=== PATIENT | female | born 1980 | race Caucasian/White ===

== ENCOUNTER → 2019-06-08 11:37 | Outpatient (CLI) | payer OTHER, SELFPAY ==
[2019-06-08 14:26] LABS: hCG Titer Quant., Serum 5691 mIU/mL (1-3)
[2019-06-10 13:36] LABS: hCG Titer Quant., Serum 4883 mIU/mL (1-3)
== END ==
PROVIDERS: Family Provider Family Medicine; PCP Family Medicine; Referring Provider Nurse Practitioner Women's Health; Visit Provider Nurse Practitioner Women's Health
DX: O36.80X0 Pregnancy with inconclusive fetal viability, not applicable or unspecified (principal); Z3A.00 Weeks of gestation of pregnancy not specified
CPT/HCPCS: 36415; 84702

== ENCOUNTER → 2019-06-12 08:36 | Outpatient (CLI) | payer OTHER, SELFPAY ==
[2019-06-12 10:27] LABS: hCG Titer Quant., Serum 4555 mIU/mL (1-3)
--- NOTE | 2019-06-12 16:37 | US_ITS ---
STUDY: FIRST TRIMESTER OBSTETRICAL ULTRASOUND REASON FOR EXAM: Female, 39 years old HCGS 4555 POSSIBLE ECTOPIC SPOTTING OVER THE WEEKEND LMP: TECHNIQUE: Transvaginal TECHNICAL QUALITY: Adequate. PRIOR ULTRASOUND: None. FINDINGS: No evidence for intrauterine gestation. The uterus measures 6.9 x 4.5 x 3.4 cm. There is no demonstrated uterine fibroid. The cervix is closed. The right ovary measures 3.4 x 2.2 x 1.3 cm. There is no right ovarian cyst. There is no visualized right adnexal mass or complex lesion. The left ovary measures 2.9 x 2.3 x 1.4 cm. There is no left ovarian cyst. Small complex adnexal lesion adjacent to left ovary measuring 3.9 x 3.4 x 1.9 cm.. Ectopic not entirely excluded There is no fluid in the cul de sac. US/Transvaginal w/Preg US IMPRESSION: No evidence for intrauterine gestation. Complex left adnexal nodule which may be consistent with ectopic however would recommend clinical correlation and follow-up. Referring physician was informed by fastener technologist after the exam according to technology notes Electronically Signed: Johnson Bartlett MD at 18:37 EST , Service support ,
[2019-06-12 16:53] LABS: Absolute Lymphocyte Count 1.79 X10^3/uL (0.83-4.51); Absolute Neutrophil Count 4.3 X10^3/uL (2.0-7.7); Basophil# 0.02 X10^3/uL; Basophil% 0.3 % (0-1); Eosinophil# 0.29 X10^3/uL; Eosinophils% 4.2 % (0-5); Hematocrit 34.5 % (37-47); Hemoglobin 10.7 g/dL (12.0-15.0); Lymphocyte # 1.79 X10^3/ul (4.0); Lymphocyte % 26.2 % (19-41); Mean Corpuscular Hgb 28.2 pg (27.0-32.0); Mean Corpuscular Volume 90.8 fL (81-99); Monocyte# 0.47 X10^3/uL; Monocyte% 6.9 % (0-10); NRBC Flagged by Analyzer 0 % (0-5); Neutrophil # 4.25 X10^3/uL (2.7-7.7); Neutrophil % 62.1 % (47-70); Platelet Count 321 K/mm3 (150-450); RBC Distribution Width CV 12.8 % (11.6-14.6); RBC Distribution Width SD 42.3 fl (35.1-43.9); White Blood Count 6.8 K/mm3 (4.4-11.0)
[2019-06-12 17:36] LABS: ALB/GLOB Ratio 0.7 RATIO (0.9-2.4); AST(SGOT) 17 U/L (15-37); Alanine Aminotransfer ALT/SGPT 26 U/L (13-56); Albumin, Serum 3.2 g/dL (3.2-5.0); Alkaline Phosphatase 63 U/L (45-117); Anion Gap 7 (5-15); BUN 6 mg/dL (7-18); BUN/Creat Ratio 8.2 RATIO (10-20); Calcium,Total 8.5 mg/dL (8.5-10.1); Chloride 108 mmol/L (98-107); Creatinine, Serum 0.73 mg/dL (0.55-1.02); EST Glomerular Filtration Rate 94 mL/min (>60); Est Glom Filt Rate - Afr Amer 114 mL/min (>60); Globulin 4.4 g/dL (2.2-4.2); Glucose 90 mg/dL (74-106); Potassium 3.5 mmol/L (3.5-5.1); Protein, Total 7.6 g/dL (6.4-8.2); Sodium Level 139 mmol/L (136-145); T4 Free Direct 0.98 ng/dL (0.76-1.46)
== END ==
LOC: LAB 16:24 → US 16:27
PROVIDERS: Obstetrics & Gynecology; Family Provider Family Medicine; PCP Family Medicine; Referring Provider Nurse Practitioner Women's Health; Visit Provider Nurse Practitioner Women's Health
DX: O02.0 Blighted ovum and nonhydatidiform mole (principal); Z3A.00 Weeks of gestation of pregnancy not specified
CPT/HCPCS: 36415; 76817; 80053; 84439; 84443; 84702; 85025

== ENCOUNTER 2019-06-12 18:11 | Day surgery (SDC) | payer OTHER, SELFPAY ==
[2019-06-12 15:54] VITALS: BMI 43.0
--- NOTE | 2019-06-12 18:22 | PCM.HP.STD ---
Problem List (1) Ectopic Status: Acute Qualifiers: Location of ectopic : tubal History of Present Illness Date of Admission: 06/12/19 Chief Complaint: ectopic The patient is a 39 year old F presents with hcg levels not rising and some vaginal bleeding, and upon ultrasound evaluation she has an adnexal mass present suspicious for ectopic . She denies any pelvic pain or current bleeding, she has had nausea and decreased appetite. Past Medical History Allergies NSAIDS (Non-Steroidal Anti-Inflamma Allergy (Mild, Verified 06/12/19 15:49) Gastric surgery Home Medications: Ambulatory Orders Medication Instructions Recorded docosahexanoic acid 200 mg capsule mg PO 06/12/19 Surgical History: Surgical History (Last Updated 06/12/19 @ 15:52 by Aimee King) History of toe surgery Z98.890 S/P cholecystectomy Z90.49 done during gastric bypass S/P gastric bypass Z98.84 Smoking Status: Never smoker Review of Systems Constitutional: Denies: Fever, Malaise Eyes: Denies: Blurred vision, Vision Change HEENT: Denies: Head Aches, Visual Changes Cardiovascular: Denies: Chest Pain, Palpitations Respiratory: Denies: Cough, Shortness of Breath, Wheezing Gastrointestinal: Denies: Abdominal Pain, Diarrhea, Nausea, Vomiting Genitourinary: Denies: Dysuria, Hematuria Musculoskeletal: Denies: Joint Pain, Muscle pain Skin: Denies: Lesions, Rash Neurological: Denies: Blurred vision, Focal weakness, Headaches Psychiatric: Denies: Anxiety, Depression Endocrine: Denies: Heat/ Cold Intolerance Hematologic/ Lymphatic: Denies: Easy Bruising, Easy Bleeding VTE Information - Inpt Only VTE Present on Admission: No VTE Mechan Device Prophylaxis: SCD's Patient Problems: Active and Suspected Problems (Last Reviewed 06/12/19 @ 15:50 by Aimee King) Ectopic (Acute) - Physical Exam Vitals/I&O's: Body Mass Index (BMI) 43.0 General: Alert, Oriented x3, Cooperative HEENT: Atraumatic, Normocephalic Oral: Moist Mucosa Neck: Trachea Midline, Thyroid Normal Size and Texture Lungs: Clear to auscultation, Normal air movement Cardiovascular: Regular rate, Regular Rhythm Abdomen: Soft, Non Tender, Non-Distended Extremities: No edema Skin: No rashes Musculoskeletal: No Tenderness to Palpation of Joints or Extremities Neurological: Neuro grossly intact Psych/Mental Status: Normal Affect Assessment/Plan All Active Problems (Last Reviewed 06/12/19 @ 15:50 by Aimee King) Ectopic (Acute) 39 yo with ectopic plan laparoscopic salpingectomy, discussed methotrexate and patient declined. After discussing the patient's diagnosis and treatment plan options, patient wishes to proceed with surgical management. I have discussed with the patient the risks, benefits, and alternatives of the procedure which include but are not limited to risks of anesthesia, bleeding, infection, possible damage to bowel, bladder, or surrounding vasculature which could lead to additional surgery to evaluate any complications. Patient agrees to procedure and wishes to proceed.
--- NOTE | 2019-06-12 18:27 | OP.PCM_ITS ---
Problem List (1) Ectopic Status: Acute Qualifiers: Location of ectopic : tubal Report of Operation Date of Procedure: 06/12/19 Pre-Operative Diagnosis: ectopic Post-Operative Diagnosis: left ectopic Surgery/Procedure Performed:: laparoscopic salpingectomy Description of Surgical Findings:: unruptured left ectopic first line supervisor: Candida Lind Type of Anesthesia:: General Special Medications: none Specimen's removed: tube Drains: none Estimated Blood Loss (mL): 25 Fluids Replaced: crystalloid Description of Procedure: She was taken the operating room and placed under general anesthesia was prepped and draped in normal sterile fashion in dorsal sodomy position. Uterine manipulator placed inside the uterus and bladder drained of clear urine preoperatively. SCDs were on. Was attempted to insert a varies needle into the umbilicus but could not be confirmed to be intra-abdominal and therefore via the Gonzalez technique the layers of the abdominal wall at the umbilicus were dissected down until was intraperitoneal and the Gonzalez trocar was placed. Abdomen was insufflated with gas and right and left lower quadrant ports were placed. A left unruptured ectopic was noted and the fallopian tube and fimbria were trans-dissected across and the ectopic removed through bag through the umbilical port. Right fallopian tube was noted to be within normal limits with no gross abnormalities. Both ovaries were within normal limits and uterus appear to be within normal limits. No scar tissue was seen in the pelvis. Umbilical port site was closed under direct visualization closing the fascia. All port sites were closed and and all instruments removed from the patient. She was awoken and taken recovery in stable condition Grafts/Implants Used: none - Complications none - Admit VTE Documentation VTE Present on Admission: No VTE Mechan Device Prophylaxis: SCD's Multi Select Codes - Urinary/Genital Urinary/Genital CPT Codes: 54652 Laproscopic BS/O
--- NOTE | 2019-06-12 18:29 | DCINST_ITS ---
Discharge Diet: No Restrictions - Increase fluid intake for the next 48 hours. Discharge Activity: Return to Normal Activity, May Drive - when you are no longer taking narcotic pain medications., May Shower, May Take a Tub Bath - in 7 days Additional Activity Instructions:: Ambulate often the next week after surgery. Nothing in the vagina for 5 days. Call your doctor if your incision/area has: Continuous Slow Oozing, Sudden Increased Bleeding, Increased Pain/ Swelling, Increased Redness, Foul Smelling Discharge Call your doctor if you observe: Fever of 101 or Higher Allergies/Adverse Reactions: Allergies NSAIDS (Non-Steroidal Anti-Inflamma Allergy (Mild, Verified 06/12/19 15:49) Gastric surgery Medications to take at Discharge Naproxen [Naprosyn] 250 - 500 mg PO Q8H PRN PRN #30 tablet 06/12/19 Oxycodone HCl/Acetaminophen [Percocet 5-325] 1 - 2 tab PO Q6H PRN PRN 7 Days #15 tab 06/12/19 docosahexanoic acid 200 mg capsule mg PO 06/12/19 The following prescriptions were given: Naproxen [Naprosyn] 250 - 500 mg PO Q8H PRN PRN #30 tablet PRN Reason: MILD PAIN Oxycodone HCl/Acetaminophen [Percocet 5-325] 1 - 2 tab PO Q6H PRN PRN 7 Days #15 tab PRN Reason: Pain Prescription Printed Primary Care Physician: Varghese Mclean [Primary Care Provider] - Test Results: Test results from this visit will be discussed in further detail at your follow- up appointment, if applicable. Please Follow Up With: Darshana Pepper MD - [phone]
[2019-06-12 18:42] VITALS: BMI 42.6
[2019-06-12 18:46] VITALS: BMI 42.6
[2019-06-12] MEDS: Lactated Ringers 1,000 ML 100 ML IV ×2 (18:53→19:45)
[2019-06-12 18:57] LABS: Absolute Lymphocyte Count 2.45 X10^3/uL (0.83-4.51); Absolute Neutrophil Count 5.6 X10^3/uL (2.0-7.7); Basophil# 0.03 X10^3/uL; Basophil% 0.3 % (0-1); Eosinophil# 0.32 X10^3/uL; Eosinophils% 3.6 % (0-5); Hematocrit 36.2 % (37-47); Hemoglobin 11.4 g/dL (12.0-15.0); Lymphocyte # 2.45 X10^3/ul (4.0); Lymphocyte % 27.7 % (19-41); Mean Corp Hgb Conc 31.5 g/dL (32-36); Mean Corpuscular Hgb 28.6 pg (27.0-32.0); Mean Corpuscular Volume 90.7 fL (81-99); Monocyte# 0.46 X10^3/uL; Monocyte% 5.2 % (0-10); NRBC Flagged by Analyzer 0 % (0-5); Neutrophil # 5.55 X10^3/uL (2.7-7.7); Platelet Count 346 K/mm3 (150-450); RBC Distribution Width CV 12.8 % (11.6-14.6); RBC Distribution Width SD 42.8 fl (35.1-43.9); Red Blood Count 3.99 M/mm3 (4.2-5.4); White Blood Count 8.8 K/mm3 (4.4-11.0)
--- NOTE | 2019-06-12 19:00 | FAL_PTH ---
PATIENT: MATT FLYNN LOC: [facility] [place] U#:[id number] AGE/SX: 39/F ROOM: RE06/12/[address]: Dr. Darshana Pepper MD : [id number] BED: DIS: 06/12/2019 SPEC #: [id number] RECD: 06/13/19 10:52 STATUS: EWELINA CRISTINA #: [id number] CORY: 06/12/19 19:[address]: Darshana Pepper DEPT: SURGICAL PATHOLOGY RECD BY: Brennen Tay ENTERED: 06/13/19 11:48 SP TYPE: ECTOPIC OTHR DR: Dr. Varghese Mclean DO Tissues: ECTOPIC PREG Procedures: Surgery Specimen Level IV HEADER OPERATION: Laparoscopic, salpingectomy PRE-OP DIAGNOSIS: Ectopic TISSUE SUBMITTED: Left fallopian tube MICROSCOPIC DIAGNOSIS Left fallopian tube, salpingectomy: Intraluminal chorionic villi, decidualized stroma and trophoblastic cells consistent with products of conception. AM:kassandra 06/14/19 MICROSCOPIC DESCRIPTION Slides are reviewed. GROSS DESCRIPTION Received in fixative is one container labeled with the patient's name and designated left fallopian tube. The specimen consists of a fallopian tube varying in diameter from 1 cm to 2.5 cm and containing a fimbriated end. The fallopian tube measures 6 cm in maximal length. Serial sections do not reveal mass lesions. Shell Core And Molding Supervisor sections are submitted in four cassettes. / AM:kassandra 06/13/19 TC:5 CPT: 81341
[2019-06-12 20:20] VITALS: BP 136/78; BP 167/103; PULSE 102; RESP 18; TEMP 36.4; O2SAT 96
[2019-06-12 20:30] VITALS: BP 138/77; BP 167/103; PULSE 95; RESP 18; O2SAT 95
[2019-06-12 20:45] VITALS: BP 136/80; BP 167/103; PULSE 82; RESP 18; O2SAT 94
[2019-06-12 20:56] VITALS: BP 140/90; BP 167/103; PULSE 84; RESP 18; TEMP 36.1; O2SAT 96
[2019-06-12 21:25] VITALS: BP 167/103
== END 2019-06-12 21:33 | disposition home or self-care (01) ==
LOC: SDC 18:13 → ACINP 18:13
PROVIDERS: Family Provider Family Medicine; PCP Family Medicine; Visit Provider Obstetrics & Gynecology
PROC: 10T24ZZ Resection of Products of Conception, Ectopic, Percutaneous Endoscopic Approach (ICD-10-PCS; CPT 59150; principal; 2019-06-12 18:15)
PROC: (CPT 58661; principal; 2019-06-12 19:00)
DX: O00.109 Unspecified tubal pregnancy without intrauterine pregnancy (principal); Z88.6 Allergy status to analgesic agent; Z98.84 Bariatric surgery status; Z90.49 Acquired absence of other specified parts of digestive tract
CPT/HCPCS: 59151; 36415; 85025; 86850; 86900; 86901; 86920; 86922; 88305; J7120; J2405